=== PATIENT | male | born 1995 | race Two or more races ===

== ENCOUNTER 2021-04-02 16:08 | Emergency (ER) | payer SELFPAY ==
[~2021-04-02] VITALS: Ht 162.6 cm; Wt 60.4 kg
[2021-04-02 16:33] VITALS: BP 101/69
[2021-04-02] MEDS ORDERED: ACETAMINOPHEN 500 MG TABLET PO ONE (17:15)
[2021-04-02] MEDS ORDERED: IBUPROFEN 200 MG TABLET. PO ONE (17:15)
[2021-04-02] MEDS ORDERED: ONDANSETRON ODT 4 MG TAB.RAPDIS. PO ONE (17:15)
[2021-04-02 17:54] LABS: INFLUENZA B PATIENT NEGATIVE (NEGATIVE)
[2021-04-02 18:17] LABS: INFLUENZA A PATIENT POSITIVE (NEGATIVE)
[2021-04-02] MEDS ORDERED: ONDA4TAB12 PO (18:56)
--- NOTE | 2021-04-02 18:57 | PHYS DOC ---
Past Medical History Past Surgical History: No Surgical History Smoking Status: Never Smoker Alcohol Use: None General Adult EDM: Chief Complaint: FLU SYMPTOM HPI: HPI: Patient is a 26-year-old male presents to the emergency department complaining of body aches, stuffy nose, headaches, generalized malaise since yesterday afternoon. Patient reports he received the COVID-19 virus vaccine 10 days ago, has not received a flu vaccine for this season, also reports nausea without vom iting, denies abdominal pains. Patient denies chest congestion. Patient denies chest pains or other complaints, denies other physical complaints or physical concerns. Review of Systems: Review of Systems: 14 body systems of review of systems have been reviewed. See HPI for pertinent positives and negative responses, otherwise all other systems are negative, nonpertinent or noncontributory. Constitutional: Negative except as outlined in HPI above. Skin: Negative except as outlined in HPI above. Eyes: Negative except as outlined in HPI above. HENT: Negative except as outlined in HPI above. Respiratory: Negative except as outlined in HPI above. Cardiovascular: Negative except as outlined in HPI above. GI: Negative except as outlined in HPI above. : Negative except as outlined in HPI above. Musculoskeletal: Negative except as outlined in HPI above. Integument: Negative except as outlined in HPI above. Neurologic: Negative except as outlined in HPI above. Endocrine: Negative except as outlined in HPI above. Lymphatic: Negative except as outlined in HPI above. Psychiatric: Negative except as outlined in HPI above. Heart Score: C/O Chest Pain: No Risk Factors: Risk Factors: DM, Current or recent (<one month) smoker, HTN, HLP, family history of CAD, obesity. Risk Scores: Score 0 - 3: 2.5% MACE over next 6 weeks - Discharge Home Score 4 - 6: 20.3% MACE over next 6 weeks - Admit for Clinical Observation Score 7 - 10: 72.7% MACE over next 6 weeks - Early Invasive Strategies Current Medications: Current Medications Medications (Trade) Dose Ordered Sig/Haroon Start Time Stop Time Status Last Admin Dose Admin Acetaminophen (Tylenol) 1,000 mg 1X ONCE 04/02/21 17:15 04/02/21 17:16 DC 04/02/21 17:24 1,000 MG Ibuprofen (Motrin) 600 mg 1X ONCE 04/02/21 17:15 04/02/21 17:16 DC 04/02/21 17:24 600 MG Ondansetron HCl (Zofran Odt) 4 mg 1X ONCE 04/02/21 17:15 04/02/21 17:16 DC 04/02/21 17:25 4 MG Allergies: Allergies: Allergies Coded Allergies Type Severity Reaction Last Updated Verified No Known Drug Allergies 04/02/21 No Physical Exam: PE: Constitutional: Well developed, well nourished, no acute distress, non-toxic appearance. 26-year-old male in no apparent distress. HENT: Normocephalic, atraumatic. Oropharynx moist, pink, no deep tissue infectious process appreciated, nasal turbinates boggy with scant clear drainage, no postnasal drip appreciated, there is no lymphadenopathy of the head or neck appreciated, patient speaking in normal voice tones, no drooling, no tr ismus. Eyes: Conjunctiva normal, no discharge. Neck: Normal range of motion, no stridor. No nuchal rigidity, no meningeal signs. Cardiovascular: No cyanosis appreciated, distal cap refill less than 2 seconds. Heart sounds S1-S2 to auscultation, regular rate and rhythm. Lungs & Thorax: Patient is in no respiratory distress, no audible adventitious lung sounds appreciated. Lung sounds clear to auscultation all lung trejo, normal work of breathing. Abdomen: Nontender, no abnormalities noted. Skin: Warm, dry, no erythema, no rash. Back: No tenderness, no deformities. Extremities: No tenderness, no cyanosis, no clubbing, ROM intact, no edema. Neurologic: Alert and oriented X 3, normal motor function, normal sensory function, no focal deficits noted. Psychologic: Affect normal, judgement normal, mood normal. Current Patient Data: Labs: Laboratory Tests Test 04/02/21 17:18 Influenza Type A Antigen Positive Influenza Type B Antigen Negative SARS-CoV-2 Antigen (Rapid) Negative Current Medications Medications (Trade) Dose Ordered Sig/Haroon Route PRN Reason Start Time Stop Time Status Last Admin Dose Admin Acetaminophen (Tylenol) 1,000 mg 1X ONCE PO 04/02/21 17:15 04/02/21 17:16 DC 04/02/21 17:24 Ibuprofen (Motrin) 600 mg 1X ONCE PO 04/02/21 17:15 04/02/21 17:16 DC 04/02/21 17:24 Ondansetron HCl (Zofran Odt) 4 mg 1X ONCE PO 04/02/21 17:15 04/02/21 17:16 DC 04/02/21 17:25 Vital Signs: Vital Signs Date Time Temp Pulse Resp B/P (MAP) Pulse Ox O2 Delivery O2 Flow Rate FiO2 04/02/21 16:33 99.2 100 22 101/69 (80) 96 99.2 EKG: EKG: [] Radiology/Procedures: Radiology/Procedures: [] Course & Med Decision Making: Course & Med Decision Making Pertinent Labs and Imaging studies reviewed. (See chart for details) 26-year-old male, vital signs reviewed, resents emerged from concerning flulike type signs and symptoms. Physical examination consistent with viral illness, will order rapid flu and COVID testing, oral Zofran, Tylenol and Motrin. Patient's rapid Covid testing negative, rapid flu A+, rapid flu B-, discussed findings with patient, will give work excuse, reviewed home care for viral illness, staying well-hydrated, strict follow-up with primary care for ongoing symptoms, return to ER precautions or concerns were reviewed, patient gave verbal understanding of and is amenable to ED discharge planning. Discussed with the patient all findings and diagnostic testing as well as the need to follow-up with their primary care provider for further evaluation and treatment or return to the ED if any new or worsening symptoms. Strict return precautions were also discussed at length, the patient voiced understanding and agreement with the discharge planning. The patient was nontoxic in appearance, in no apparent distress, and hemodynamically stable at the time of disposition. Isela Disclaimer: Isela Disclaimer: This electronic medical record was generated, in whole or in part, using a voice recognition dictation system. Departure Departure Impression: Primary Impression: Influenza A Additional Impression: Viral illness Disposition: HOME / SELF CARE / HOMELESS Condition: GOOD Referrals: NO PCP (PCP) Patient Instructions: Influenza Facts, Influenza, Adult Additional Instructions: You were seen today in the emergency department for flulike signs symptoms. You were given oral Zofran for nausea, Tylenol and Motrin for aches and pains. A rapid COVID 19 along with rapid flu A and flu B testing was performed today. Your Covid test was negative along with your rapid flu B, however your rapid flu A test is positive. I have attached information about influenza to this document, please review. Please stay well-hydrated and continue to take Tylenol and or ibuprofen [id number] for ongoing symptoms. Follow-up with your primary care physician soon. If you do not have a primary care physician I have attached a list of area primary care providers for you to choose and establish health care. Return to the emergency department for worsening symptoms or other concerns. Thank you for visiting our Emergency Department. It was a pleasure taking care of you today in the emergency department and we appreciate you trusting us with your care. If any additional problems come up don't hesitate to return to visit us. Please follow up with your primary care provider so they can plan additional care if needed and know about the problem that you had. If symptoms worsen come back to the Emergency Department. Any concerning symptoms that start such as chest pain, shortness of air, weakness or numbness on one side of the body, running high fevers or any other concerning symptoms return to the ER. Scripts Ondansetron (ONDANSETRON ODT) 4 Mg Tab.rapdis 1 TAB PO PRN Q6-8HRS for nausea, #16 TAB Prov: TARA BLANCHARD APRN 04/02/21 TARA BLANCHARD APRN Apr 02, 2021 18:57
== END 2021-04-02 19:50 | disposition home or self-care (01) ==
LOC: ER 16:08
DX: J09.X2 Influenza due to identified novel influenza A virus with other respiratory manifestations (principal); B34.9 Viral infection, unspecified; Z20.822 Contact with and (suspected) exposure to COVID-19
CPT/HCPCS: 87428; 99284